=== PATIENT | female | born 1950 | race Caucasian/White ===

== ENCOUNTER 2019-01-07 05:26 | Inpatient (IN) | payer OTHER ==
[2018-12-19 12:44] LABS: HEMOGLOBIN 11.8 gm/dL (12.0-15.0); MCH 28.6 pg (26.0-34.0); MCHC 32.9 g/dL (28.0-37.0); MCV 87.2 fL (80.0-100.0); RBC 4.13 mil/uL (4.20-5.00); RDW 15.9 % (10.5-14.5); WBC 6.6 thou/uL (4.0-11.0)
[2018-12-19 12:53] LABS: ALBUMIN 4.1 g/dL (3.4-5.0); CALCIUM 9.1 mg/dL (8.5-10.1); CREATININE 1.3 mg/dL (0.6-1.0); POTASSIUM 4.3 mmol/L (3.5-5.1)
[2018-12-19 13:21] LABS: URINE BILIRUBIN NEGATIVE (Negative); URINE BLOOD NEGATIVE (Negative); URINE CLARITY CLEAR; URINE COLOR YELLOW; URINE GLUCOSE-RANDOM* NEGATIVE (Negative); URINE KETONES NEGATIVE (Negative); URINE LEUKOCYTES-REFLEX NEGATIVE (Negative); URINE NITRITE-REFLEX NEGATIVE (Negative); URINE PROTEIN (DIPSTICK) NEGATIVE (Negative); URINE SPECIFIC GRAVITY <= 1.005 (1.005-1.035); URINE UROBILINOGEN 0.2 E.U./dl (0.2-1.0)
[2018-12-19 14:40] LABS: PROTIME 10.7 Seconds (9.3-11.4)
--- NOTE | 2018-12-20 07:52 | EKG ---
[place] [address] [facility] [place] [address] ELECTROCARDIOGRAM REPORT Name: SHAKA MARTINEZ Room #: PRE IN ..#: [id number] Admission: Attend Phys: Tk Quesada MD Discharge: Date of : 52 Report #: [id number] THIS REPORT FOR: //name// [facility] Test Date: 2018-12-19 Test Time: 12:40:36 Pat Name: SHAKA MARTINEZ Department: Room: Gender: F Receiving Team Member: JESSI GAALN : 1950 Requested By: Tk Quesada Order Number: [id number] MD: Regan Gupta Measurements Intervals [place] Rate: 64 P: 73 UT: 215 QRS: -70 QRSD: 147 T: 76 QT: 464 QTc: 479 Interpretive Statements Atrial-sensed ventricular-paced rhythm No further analysis attempted due to paced rhythm No previous ECG available for comparison Electronically Signed On 12-20-2018 7:52:10 CDT by Regan Gupta [email or web address] <ELECTRONICALLY SIGNED> By: Regan Gupta MD, [facility] 12/20/18 0752 1240 1240 Regan Gupta MD, FACC /EPI
[2019-01-07] VITALS (10 sets, daily range): BP systolic 113–134; BP diastolic 51–70
[~2019-01-07] VITALS: Ht 162.6 cm; Wt 68.0 kg
--- NOTE | ~2019-01-07 | O ---
[facility] [place] [address] OPERATIVE REPORT Name: SHAKA MARTINEZ Room #: 150-1 [facility] IN M.R.#: [id number] Admission: 01/07/19 Attend Phys: Tk Quesada MD Discharge: Date of : 52 Report #: [id number] THIS REPORT FOR: //name// CC: Sheri Quesada DATE OF SERVICE: 01/07/2019 PREOPERATIVE DIAGNOSIS: Left total knee arthroplasty, aseptic, loosening. POSTOPERATIVE DIAGNOSIS: Left total knee arthroplasty, aseptic, loosening. PROCEDURE: Revision of left total knee arthroplasty, all three components. SURGEON: Tk Quesada MD. MILL WORK: Su Jiménez PA-C. INDICATIONS FOR MILL WORK: Throughout the case, extensive retraction and manipulation of the knee was required. This was afforded to me by my assistant editor. ANESTHESIA: LMA with an adductor canal block. IMPLANTS: [employer] Legion revision system with a size 4 revision Legion Oxinium posterior stabilized femoral component with a 4 mm offset phy therapist and an 11 x 160 stem, a size 2 tibia with a 10 mm medial and lateral tibial wedge build up, a size 4 mm offset phy therapist and a 10 x 160 stem and a size 29 patella with a size 15 highly constrained polyethylene. TOURNIQUET TIME: 102 minutes. ESTIMATED BLOOD LOSS: 25 mL. COMPLICATIONS: None. SPECIMENS: Intraoperative frozen section as well as intraoperative culture was performed. Intraoperative frozen section revealed no white cells per high power field. DESCRIPTION OF PROCEDURE: Risks, benefits, alternatives, complications were discussed in detail with the patient including but not limited to risk of anesthesia; risk of damage to nerves, arteries, blood vessels; risk for infection, bleeding; risk for continued knee pain, need for reoperation. Informed consent was obtained from the patient. Left knee was appropriately marked in the preoperative holding area. IV clindamycin was given for preoperative antibiotics. She was brought to the operating room and placed in [address] [address] OPERATIVE REPORT Name: SHAKA MARTINEZ Room #: 150-1 [facility] IN [facility].#: [id number] Admission: 01/07/19 Attend Phys: Tk Quesada MD Discharge: Date of : 52 Report #: [id number] supine position on operating room table. LMA anesthesia was induced without complication. Tourniquet was placed on the left thigh. Left lower extremity was prepped and draped in normal sterile fashion. Timeout was performed, properly identifying the patient and procedure as well as the instrumentation. All in the operating room were in agreement. Left lower extremity was exsanguinated, tourniquet was inflated. Tourniquet time was 102 minutes. A previous incision was used and the scar was excised with a #10 blade. This was then opened down to the fascia and deep flaps were developed medially and laterally. Fresh 10 blade was used to make a medial parapatellar arthrotomy and the knee was inspected. There was normal-appearing joint fluid. Cultures of this were taken. Several samples of synovium were then taken and sent for intraoperative frozen section, which revealed no white cells per high power field. Medial and lateral gutters were reestablished and the patella was mobilized. The polyethylene was removed and then the femoral component was removed with combination of curved and straight osteotomes. The femoral component actually came out very easily and seemed to be obviously loose. Attention was then turned to the tibial component and tibial component was resected with a straight and curved osteotomes and then removed with a little bit more difficulty than the femoral component, but it also seemed to be loose. After this, the femoral and tibial canals were sequentially reamed. The tibial canal was reamed up to a size 10, at which point there was excellent fit of a 10 reamer. A cleanup cut was then performed with the tibial resection guide. The tibia was sized and found to be a size 2. This fit best with the 4 mm offset phy therapist at the 2 o'clock position. This was then reamed and the large reamer was not able to flush with the bone and it was felt that we may need a medial buildup on the tibial plateau. The trial component was built on the back table with a 10 mm buildup on the medial and lateral side and this fit well. Attention was then turned to the femur. This was reamed up to a size 11 at which point, there was good fit. A cleanup distal cut was then made and the femur was sized, found to be a size 4. This fit best with a 4 mm offset phy therapist at the 3 o'clock position. Anterior, posterior and chamfer cuts were made. The femoral trial was then built and placed. The box cut was made. This was then trialed with up to a size 15 highly constrained polyethylene and a size 15 highly constrained had the best fit. Range of motion and laxity medially and laterally. The previous patellar button was then removed with oscillating saw and a small cleanup cut was made and the patella and a size 29 patellar trial button was then placed. Knee was taken through range of motion, found to be stable, found to have good balance in flexion and extension with good patellar tracking. After this, trial components were removed. Bone ends were thoroughly irrigated with normal saline. Final components were built on the back table and the final tibial, femoral and patellar components were cemented in place using standard cementation techniques. While the cement cured, a periarticular injection consisting of morphine, ropivacaine and epinephrine was placed around the knee joint capsule. After the cement cured, the tourniquet was deflated. Hemostasis was obtained with Bovie cautery. A final size 15 highly constrained polyethylene was placed. A gram of vancomycin was placed deep in the joint. [address] [address] OPERATIVE REPORT Name: SHAKA MARTINEZ Room #: 150-1 [facility] IN .R.#: [id number] Admission: 01/07/19 Attend Phys: Tk Quesada MD Discharge: Date of : 52 Report #: [id number] The fascia was closed with 0 Vicryl, skin was closed with 2-0 Vicryl and 3-0 Monocryl. Dermabond and a SEBASTIAN dressing were applied. The patient tolerated this procedure well and went to recovery room under care of Anesthesia postoperatively. By: 1054 1202 Tk Quesada MD /nt
[~2019-01-07 05:26] MED LIST: ALLERGY MEDICAT25 MG PO; ANTIVERT25 MG PO; BACLOFEN 10MG T10 MG PO; BUSPIRONE HCL10 MG PO; COREG25 MG PO; COZAAR 25 MG TA25 M1 PO; CYMBALTA60 MG PO; DEMADEX20 MG PO; FISH OIL 1,001000 M2 PO; INSPRA50 MG PO; KLOR-CON 1010 MEQ PO; MIRAPEX1 MG PO; OMEPRAZOLE40 MG PO; ONDANSETRON HCL4 M2 PO; SIMVASTATIN40 MG PO; TRAMADOL 50 MG50 MG PO; TRAZODONE HCL100 MG PO; ZANTAC 150MG T150 MG PO
--- NOTE | 2019-01-07 21:33 | NUR ---
Admitted to the floor from operating room, S/P L total knee revision today by Dr Quesada. Pt A+Ox4. On clear liquids then may advance as tolerated, pt tolerated liquids, diet progressed. With SL at L FA- patent and intact. Complained of pain, due PRN pain meds given as prescribed. With Dressing at post op surgical site- C/D/I, SEBASTIAN in place. On room air, as per report by OR staff, pt uses CPAP at night- pt asked and refused to use CPAP. Ice packs, TEDs socks and SCDs in place. With friend at bedside. Reviewed pt's orders, saw that 2 IVF are ordered at the same time, called aviation electrical technician [employer] Dr to verify which one to give as per Dr Tete Tierney, to d/c D5NS and give L.Ringers as ordred. Pt tolerated regular diet, no nausea, vomiting and abdominal pain noted. Assisted in ADLs. Seen by PT today- tolerated session well, able to walk up to the door. Complained of itchiness, PRN benadryl given as precribed. Vital signs stable, to keep monitoring and continue care.
[2019-01-08] VITALS (9 sets, daily range): BP systolic 96–120; BP diastolic 48–76
--- NOTE | 2019-01-08 02:42 | NUR ---
ASSUMED CARE AROUND 1900. AXOX4. S/P L KNEE OA. VSS. TIARRA,SCD ON, POLAR PACK ON. AMBULATED TO TOILET WITH WALKER AND GAIT BELT. POST OP IV ATB COMPLTETED. NO S/S ACUTE DISTRESS NOTED OR REPORTED AT THIS TIME. WILL CONT TO MONITOR FOR ANY CHANGES IN CONDITION.
[2019-01-08 06:06] LABS: HEMATOCRIT 29.3 % (37.0-47.0); HEMOGLOBIN 9.8 gm/dL (12.0-15.0); MCH 29.3 pg (26.0-34.0); MCHC 33.3 g/dL (28.0-37.0); MCV 88.2 fL (80.0-100.0); RBC 3.33 mil/uL (4.20-5.00); RDW 15.7 % (10.5-14.5)
--- NOTE | 2019-01-08 12:15 | NUR ---
Chart reviewed and case discussed with the care team. Specialist Physician visited with the pt and her boyfirend Elan at bedside. PT deferred this am due to pain issues. Pt motivated and will try again mid day. She reports plan for dc home in 1-2 days with plans for outpt therapy. Elan will be staying with her and helping with transport to her therapy appts. He will do the laundry and meal prep as well. She has two steps to enter her ranch style home. She has both a Rollar walker and a rolator with a seat. No cm interventions indicated at this time. Pt has her outpt therapy appt scheduled for next Sunday. Will remain available should dc needs arise.
--- NOTE | 2019-01-08 13:51 | NUR ---
PT A&OX4, VSS, PAIN IN LEFT KNEE MANAGED WITH SCHEDULED NORCO. PATIENT HAD EXPERIENCED REDNESS AFTER IV MORPHINE. MORPHINE DC'D PER DOCTOR ORDER. BENEDRYL GIVEN. TIARRA ANGLIN, CRYSTAL, POLAR PACK IN PLACE. PATIENT UP TO BEDSIDE COMMODE ONE ASSIST. DENIES CHEST PAIN AND SOA. SENSATION IN LEFT LEG, WARM TO TOUCH, COLOR APPROPRIATE. BOYFRIEND AT BEDSIDE, WILL CONTINUE TO MONITOR.
--- NOTE | 2019-01-08 15:07 | PATH ---
[facility] [place] [address] PATHOLOGY RPT PROCEDURE Name: SHAKA MARTINEZ Room #: 450-P ADM IN M.R.#: [id number] Admission: 01/07/19 Date of : 52 Discharge: Report #: [id number] Path Case #: [id number] [facility] Accession Number: [id number] . 01 Material submitted: . knee - LEFT KNEE SYNOVIUM - FS. Modifiers: left . 01 Clinical history: . Left knee prosthetic pain; DJD . 02 Frozen section diagnosis: . FROZEN SECTION DIAGNOSIS: FSA1: Left knee synovium: - No definite neutrophils present. - Synovium with mild chronic inflammation, focal. . The findings in this case were relayed to Dr. Tk Quesada at the time of the procedure. (SKM:bao; 01/07/2019) . . . FROZEN SECTION GROSS DESCRIPTION: Received fresh, labeled "left knee synovium" and consists of three pieces of firm pink and yellow-white pieces of tissue which aggregate to 6.0 x 3.0 x 0.9 cm. Cut sections through these three pieces of tissue show slightly firm pink-white tissue with scattered areas of yellow adipose tissue. A civil rights representative section from each of the three pieces is all frozen on one yuliana. The frozen remnant is submitted in A1. . (SKM:pit; 01/07/2019) . Frozen section performed at [facility], [address], [place] [address]. JUAN/OMAR . 02 Diagnosis: "Left knee synovium", biopsy: - Synovium with reactive synovial hyperplasia and mild chronic inflammation; no significant acute inflammation identified (less than 1 neutrophil / high power field). (CLW:pit; 01/08/2019) QTP/01/08/2019 . 02 Electronically signed: . Aida Daniels MD, Pathologist NPI- [id number] [place] [address] PATHOLOGY RPT PROCEDURE Name: SHAKA MARTINEZ Room #: 450-P [facility] IN ..#: [id number] Admission: 01/07/19 Date of : 52 Discharge: Report #: [id number] Path Case #: [id number] . 03 Gross description: . PLEASE SEE FROZEN SECTION GROSS DESCRIPTION. /MBR . 02 Pathologist provided ICD-10: M65.9 . 02 CPT . 914673, 450955 Specimen Comment: A courtesy copy of this report has been sent to Specimen Comment: [phone], . Specimen Comment: Report sent to / DR TOBIN Performed at: [address], [place], [place] [id number] MD Pawan Pradhan MD Phone: [phone] Performed at: [address] [id number] MD Chika Comer MD Phone: [phone] Performed at: [address], [place], [place] [id number] MD Pawan Pradhan MD Phone: [phone]
--- NOTE | 2019-01-09 04:16 | NUR ---
Pt. rested quietly at intervals during the night when checked on during frequent rounds. She c/o chronic pain to her left knee and has been given scheduled pain meds (see emar) with some relief noted. Benadryl also given for itching (see emar) with some rellief noted. Up to the bedside comode with one assistance. Polar pack in place to left knee. Dressing to left knee is intact. Bed alarm is on.
[2019-01-09 05:44] LABS: HEMATOCRIT 24.9 % (37.0-47.0); HEMOGLOBIN 8.4 gm/dL (12.0-15.0); MCH 29.7 pg (26.0-34.0); MCHC 33.9 g/dL (28.0-37.0); MCV 87.6 fL (80.0-100.0); RBC 2.84 mil/uL (4.20-5.00); RDW 16.2 % (10.5-14.5); WBC 9.4 thou/uL (4.0-11.0)
[2019-01-09 08:22] VITALS: BP 95/53
[2019-01-09 08:26] VITALS: BP 112/75
[2019-01-09 15:45] VITALS: BP 115/52
[2019-01-09 17:40] VITALS: BP 115/52
[2019-01-09 19:46] VITALS: BP 130/43
--- NOTE | 2019-01-09 20:20 | NUR ---
PT A&OX4, VSS, PAIN IN LEFT KNEE. PAIN MANAGED WITH MEDICATION AND POLAR PACK. PATIENT STATES HER PAIN IS UNCONTROLLED. PATIENT HAS LETHARGIC THROUGHOUT DAY, WHEN SPEAKING WITH HER SHE WOULD DOZE OFF. PATIENT UP TO BATHROOM AND BEDSIDE COMMODE WITHOUT ISSUE. PATIENT REFUSED PHYSICAL THERAPY TODAY D/T PAIN PER PATIENT. MS CONTIN SCHEDULED BID, TYLENOL GIVEN, WILL CONTINUE TO MONITOR.
[2019-01-10 04:40] LABS: HEMOGLOBIN 8.1 gm/dL (12.0-15.0); MCH 29.7 pg (26.0-34.0); MCHC 33.9 g/dL (28.0-37.0); MCV 87.7 fL (80.0-100.0); RBC 2.73 mil/uL (4.20-5.00); RDW 16.2 % (10.5-14.5); WBC 8.1 thou/uL (4.0-11.0)
--- NOTE | 2019-01-10 07:21 | NUR ---
ASSUMED CARE AROUND 1900. AXOX4. TIARRA,SCD,POLAR PACK ON. PAIN TX PER MD ORDER. PAIN ON L KNEE WITH MOVEMENTS. NO S/S ACUTE DISTRESS NOTED OR REPORTED AT THIS TIME. CARE TRANSFERRED TO INCOMING RN AT THIS TIME.
[2019-01-10 07:33] VITALS: BP 126/42
[2019-01-10 09:41] VITALS: BP 126/46
--- NOTE | 2019-01-10 10:57 | NUR ---
Received awake on bed. Due medications given as prescribed, able to swallow tablets w/o difficulty. With IVF- Lactated Ringers at 100cc/hr, infusing well at R FA. Assisted in ADLs. Complained of pain, due PRN pain medications given as presribed. Seen by PT today, tolerated session. With friend at bedside. With SEBASTIAN dressing at L knee in place, dressing C/D/I. Polar pack, TEDs socks and SCDs in place. Falls risk- falls bundle in place. A/w orders if pt will be discharged today, with discharge summary from ortho yesterday but deferred discharge due to pain control.
[2019-01-10] MEDS ORDERED: ASPIR 8181 MG PO (14:31)
== END 2019-01-10 17:30 | disposition home or self-care (01) | DRG 468 ==
LOC: PRE 05:26 → 4W 05:56 → TBA 05:56 → PRE 09:35 → 4W 12:25 → ENTRNSPT 01-10 17:45
PROVIDERS: ADMIT Orthopaedic Surgery
PROC: 0SPD0JZ Removal of Synthetic Substitute from Left Knee Joint, Open Approach (ICD-10-PCS; principal; 2019-01-07)
PROC: 3E0T3BZ Introduction of Anesthetic Agent into Peripheral Nerves and Plexi, Percutaneous Approach (ICD-10-PCS; principal; 2019-01-07)
PROC: 0SRD0J9 Replacement of Left Knee Joint with Synthetic Substitute, Cemented, Open Approach (ICD-10-PCS; principal; 2019-01-07)
DX: T84.033A Mechanical loosening of internal left knee prosthetic joint, initial encounter (principal); Y83.8 Other surgical procedures as the cause of abnormal reaction of the patient, or of later complication, without mention of misadventure at the time of the procedure; Y92.89 Other specified places as the place of occurrence of the external cause; Z88.8 Allergy status to other drugs, medicaments and biological substances; Z88.1 Allergy status to other antibiotic agents; Z91.041 Radiographic dye allergy status
CPT/HCPCS: 10047; 50010; 50101; 50415; 50954; 51130; 51225; 51320; 52001; 52056; 52282; 53000; 53078; 54118; 55389; 56527; 56528; 57095; 57103; 57110; 57180; 62110; 62900; 64042; 70005

== ENCOUNTER 2019-02-28 10:21 | Day surgery (SDC) | payer OTHER ==
[~2019-02-28 10:21] MED LIST changes: +ASPIR 8181 MG PO
[2019-02-28 11:54] VITALS: BP 150/72
[2019-02-28] MEDS ORDERED: CLINDAMYCIN HC300 MG PO (13:38)
[2019-02-28 13:46] VITALS: BP 150/72
[2019-03-01] MEDS ORDERED: PREDNISONE 20 M20 MG PO (17:00)
[2019-03-01] MEDS ORDERED: SLEEP AID50 MG PO (17:00)
--- NOTE | 2019-03-25 12:13 | O ---
[facility] [place] [address] OPERATIVE REPORT Name: SHAKA MARTINEZ Room #: DEP [facility]..#: [id number] Admission: 02/28/19 Attend Phys: Tk Quesada MD Discharge: 02/28/19 Date of : 51 Report #: [id number] THIS REPORT FOR: //name// CC: Sheri Quesada DATE OF SERVICE: 02/28/2019 PREOPERATIVE DIAGNOSIS: Status post revision left total knee arthroplasty with suture abscess x 3. POSTOPERATIVE DIAGNOSIS: Status post revision left total knee arthroplasty with suture abscess x 3. PROCEDURE: Excision of left knee superficial suture abscess x 3. SURGEON: Tk Quesada MD ANESTHESIA: LMA. COMPLICATIONS: None. SPECIMENS: None. CONDITION UPON LEAVING THE OPERATING ROOM: Stable. INDICATIONS FOR PROCEDURE: The patient is a 68-year-old female who is several weeks out from a revision left knee arthroplasty. She has continued to have some drainage from superficial suture abscesses in her knee and had failed treatment with oral antibiotics. After discussion with her, she elected for surgical excision of the abscesses. DESCRIPTION OF PROCEDURE: Risks, benefits, alternatives, complications were discussed in detail with the patient including but not limited to risk of anesthesia, risk of damage to nerves, arteries, blood vessels, risk for infection, bleeding, risk for continued knee pain, need for reoperation. Informed consent was obtained from the patient. Left knee was appropriately marked in the preoperative holding area. IV Ancef was given for preoperative antibiotics. She was brought to the operating room and placed in the supine position on the operating room table. LMA anesthesia was induced without complication. Left lower extremity was prepped and draped in normal sterile fashion. Timeout was performed properly identifying the patient and procedure as well as the instrumentation. All in the operating room were in agreement. The areas of the suture abscesses were then marked with a marking pen and ellipsed out using a 10 blade. These were all very superficial. They were thoroughly irrigated with normal saline and closed with 3-[address] [address] OPERATIVE REPORT Name: SHAKA MARTINEZ Room #: [facility].#: [id number] Admission: 02/28/19 Attend Phys: Tk Quesada MD Discharge: 02/28/19 Date of : 51 Report #: [id number] dressing of Adaptic, 4 x 4, Webril, Herberth wrap were applied. The patient tolerated this procedure well and went to recovery room under care of anesthesia postoperatively. <ELECTRONICALLY SIGNED> By: Tk Quesada MD 03/25/19 1213 1205 1210 Tk Quesada MD /nt
== END 2019-02-28 14:50 | disposition home or self-care (01) ==
LOC: OR 10:21 → TBA 10:22 → OR 14:50
DX: T81.41XA Infection following a procedure, superficial incisional surgical site, initial encounter (principal); L02.416 Cutaneous abscess of left lower limb; Z96.652 Presence of left artificial knee joint; Y83.8 Other surgical procedures as the cause of abnormal reaction of the patient, or of later complication, without mention of misadventure at the time of the procedure; Z91.041 Radiographic dye allergy status; Z88.8 Allergy status to other drugs, medicaments and biological substances; Z79.899 Other long term (current) drug therapy; Z98.890 Other specified postprocedural states
CPT/HCPCS: 50010; 50101; 50415; 50954; 53078; 56525; 57095; 57103; 57110; 57116; 62110; 62900; 70005

== ENCOUNTER 2019-03-01 14:54 | Emergency (ER) | payer OTHER ==
[~2019-03-01] VITALS: Ht 162.6 cm; Wt 70.3 kg
[~2019-03-01 14:54] MED LIST changes: +CLINDAMYCIN HC300 MG PO
[2019-03-01 16:05] LABS: ABSOLUTE NEUTROPHILS 8.8 thou/uL (1.4-8.2); BASOPHILS 0.4 % (0.0-2.0); HEMATOCRIT 32.8 % (37.0-47.0); HEMOGLOBIN 10.5 gm/dL (12.0-15.0); LYMPHOCYTES 15.1 % (24.0-44.0); MCH 28.6 pg (26.0-34.0); MCV 89.5 fL (80.0-100.0); MONOCYTES 7.1 % (1.0-8.0); PLATELET COUNT 250 thou/uL (150-400); POLYS 77.4 % (36.0-66.0); RBC 3.67 mil/uL (4.20-5.00); RDW 14.9 % (10.5-14.5); WBC 11.3 thou/uL (4.0-11.0)
[2019-03-01 16:12] LABS: CALCIUM 8.8 mg/dL (8.5-10.1); CREATININE 1.1 mg/dL (0.6-1.0); POTASSIUM 4.2 mmol/L (3.5-5.1)
[2019-03-01 16:19] LABS: ALBUMIN 3.8 g/dL (3.4-5.0); TOTAL BILIRUBIN 0.3 mg/dL (<0.1-1.0); TOTAL PROTEIN 7.3 g/dL (6.4-8.2)
[2019-03-01] MEDS ORDERED: PREDNISONE 20 M20 MG PO (17:00)
[2019-03-01] MEDS ORDERED: SLEEP AID50 MG PO (17:00)
[2019-03-01 17:19] VITALS: BP 138/69
== END 2019-03-01 17:19 | disposition home or self-care (01) ==
LOC: ER 14:54
PROVIDERS: Emergency Medicine
DX: Z48.01 Encounter for change or removal of surgical wound dressing (principal); L29.9 Pruritus, unspecified; I10 Essential (primary) hypertension; E78.5 Hyperlipidemia, unspecified; K21.9 Gastro-esophageal reflux disease without esophagitis; G47.30 Sleep apnea, unspecified; Z90.710 Acquired absence of both cervix and uterus; Z96.652 Presence of left artificial knee joint; Z95.0 Presence of cardiac pacemaker; Z88.6 Allergy status to analgesic agent; Z88.8 Allergy status to other drugs, medicaments and biological substances

== ENCOUNTER 2020-05-25 01:36 | Emergency (ER) | payer OTHER ==
[~2020-05-25] VITALS: Ht 162.6 cm; Wt 72.6 kg
--- NOTE | ~2020-05-25 | EMS ---
[address] [address] EMS Patient Care Report Name: SHAKA MARTINEZ Room #: DEP [facility] [place]#: [id number] Admission: 05/25/20 Attend Phys: Discharge: 05/25/20 Date of : 52 Report #: [id number] THIS REPORT FOR: //name// Report Transmitted: 05/25/2020 03:07 EMS Care Summary [facility] MED-ACT Incident [id number] @ 05/25/2020 00:44 Incident Location [address] [place] [address] Patient SHAKA MARTINEZ Female, 70 Years 1950 Patient Address [address] [place] [address] Patient History Hypertension (HTN),Pacemaker/AICD, Patient Allergies Iodine, Patient Medications Hydrocodone, Chief Complaint "My left knee hurts" Disposition Transported No Lights/[place] Reason Sick Person Transported To [facility] Narrative The pt. was found sitting upright on couch with family on scene. The pt. appears awake and alert and in mild distress. Upon initial pt. assessment pt. has a strong regular radial pulse, pt's breathing is regular and non-labored and pt's skin is warm, dry and pink. Pt's pant leg is rolled up on left side [address] [address] EMS Patient Care Report Name: SHAKA MARTINEZ Room #: DEP [facility]ol[facility]ando#: [id number] Admission: 05/25/20 Attend Phys: Discharge: 05/25/20 Date of : 52 Report #: [id number] and it is noted that pt's left knee is swollen. The pt. states that approx. 3 days ago during movement she had felt a pop and then pain and swelling developed in her left knee. The pt. states that she iced her knee and the pain was tolerable though the swelling continued. The pt. states that tonight while sitting on the couch and attempting to move over so her cat could sit next to her pt. felt a pop in her left knee and then excruciating pain in her left knee. The pt. rates her pain a 10/10 on pain scale. The pt. states that her left knee is artificial and had the surgery done at [facility] which is where pt. is requesting to be transported. The pt. also mentions that she had a procedure done on 05/19/20 to help treat a blood clot located in her clavicle. The pt. states that she is worried that possibly the blood clot traveled to her knee causing the swelling and pain. The pt. was assessed and vitals obtained. Pt. was helped onto stair chair, once moved to stair chair pt. stated that her knee was starting to spasm. manual support of knee maintained. Pain management was discussed and an IV attempted. The pt. stated that they usually have a hard time and she recently had a PICC line but no longer does. Other options were discussed and pt. decided she wanted IM injection of Fentanyl. 100mcg Fentanyl administered in left upper thigh. EMS waited a small amount of time to left Fentanyl affects to take place. It was noted that after the administration of Fentanyl pt's knee and the pt. appeared to relax somewhat making it easier for EMS and FD to maneuver pt. The pt. was then moved via stair chair out the front door and over to cot, pt. lifted and placed onto cot while padding pt's left knee. Pt. secured, cot to ambulance. Pt. transported to [facility] while monitoring EKG. No changes occurred en route. Arrived at [facility]. Pt. was moved over to hospital bed via sheet drag with 3 personnel. Pt. care was transferred over to [facility] ER nursing staff in room 3 without incident. Initial Vitals @PTAP: 69,R: 14,BP: 162/79,Pain: 10/10,GCS: 15,SpO2: 97,Revised Trauma: 12, @01:23P: 128,R: 14,BP: 153/75,Pain: 10/10,GCS: 15,SpO2: 98,Revised Trauma: 12,NE Suspected: false @01:20P: 65,R: 14,Pain: 10/10,GCS: 15,SpO2: 93,NE Suspected: false @01:28P: 125,R: 14,Pain: 10/10,GCS: 15,Temp: 98.5F,SpO2: 94,NE Suspected: false @01:30P: 122,R: 14,BP: 108/69,GCS: 15,SpO2: 100,Revised Trauma: 12,NE Suspected: false Assessments @00:52MENTAL:Time Oriented,Person Oriented,Place Oriented,Event Oriented,SKIN:HEENT:Eyes: No Abnormalities,LUNG SOUNDS:ABDOMEN:PELVIS//GI:EXTREMITIES:Left Leg: Edema,Left Arm: No Abnormalities,Right Arm: No Abnormalities,Right Leg: No [facility] [address] [place] [address] EMS Patient Care Report Name: SHAKA MARTINEZ Room #: DEP [facility]#: [id number] Admission: 05/25/20 Attend Phys: Discharge: 05/25/20 Date of : 52 Report #: [id number] Abnormalities,PULSE:Pedal: 2+ Normal,Radial: 2+ Normal,NEURO:No Abnormalities, Impression Extremity Pain Procedures @PTASurgical Mask on PatientResponse: Unchanged@01:05Saline Lock 10cc (20 ga) Site: Hand-LeftResponse: UnchangedFailed@01:10Fentanyl - 100 Micrograms (mcg) - Intramuscular (IM)Response: Improved Timeline SEGMENT BLOCK LAYER,Surgical Mask on Patient,Response: Unchanged SEGMENT BLOCK LAYER,BP: 162/79 M,PULSE: 69,RR: 14 R,SPO2: 97 Ox,ETCO2: ,BG: ,PAIN: 10,GCS: 15, 00:42,Call Received 00:42,Psap Call 00:44,Dispatched 00:45,En Route 00:49,On Scene 00:51,At Patient 01:05,Saline Lock 10cc 20 ga Site: Hand-Left,Response: UnchangedFailed, 01:10,Fentanyl - 100 Micrograms (mcg) - Intramuscular (IM),Response: Improved 01:19,Depart Scene 01:20,BP: / M,PULSE: 65,RR: 14 R,SPO2: 93 Ox,ETCO2: ,BG: ,PAIN: 10,GCS: 15, 01:23,BP: 153/75 M,PULSE: 128,RR: 14 R,SPO2: 98 Ox,ETCO2: ,BG: ,PAIN: 10,GCS: 15, 01:28,BP: / M,PULSE: 125,RR: 14 R,SPO2: 94 Ox,ETCO2: ,BG: ,PAIN: 10,GCS: 15, 01:30,BP: 108/69 M,PULSE: 122,RR: 14 R,SPO2: 100 Ox,ETCO2: ,BG: ,PAIN: ,GCS: 15, 01:32,At Destination 01:45,Call Closed Disclaimer v1.1 Copyright 2020 [employer] This EMS Care Summary contains data elements from the applicable legal record (which may be displayed differently). It is designed to provide pertinent information for the following purposes: continuity of care, clinical quality, and state data reporting. The complete legal record is available to ED staff and administrators of the receiving hospital in [employer] Patient Tracker. All data is provided "as is."
[~2020-05-25 01:36] MED LIST changes: +PREDNISONE 20 M20 MG PO; +SLEEP AID50 MG PO
[2020-05-25] MEDS ORDERED: NAPROSYN500 MG PO (03:35)
[2020-05-25 04:06] VITALS: BP 136/61
== END 2020-05-25 04:06 | disposition home or self-care (01) ==
LOC: ER 01:36
DX: S86.912A Strain of unspecified muscle(s) and tendon(s) at lower leg level, left leg, initial encounter (principal); I10 Essential (primary) hypertension; E78.5 Hyperlipidemia, unspecified; K21.9 Gastro-esophageal reflux disease without esophagitis; Z86.718 Personal history of other venous thrombosis and embolism; Z90.711 Acquired absence of uterus with remaining cervical stump; Z95.0 Presence of cardiac pacemaker; Z96.652 Presence of left artificial knee joint; Z79.2 Long term (current) use of antibiotics; Z79.899 Other long term (current) drug therapy; Z88.8 Allergy status to other drugs, medicaments and biological substances; Z91.041 Radiographic dye allergy status; Z88.1 Allergy status to other antibiotic agents; Z88.6 Allergy status to analgesic agent; X50.1XXA Overexertion from prolonged static or awkward postures, initial encounter; Y93.89 Activity, other specified; Y92.89 Other specified places as the place of occurrence of the external cause; Y99.8 Other external cause status